=== PATIENT | female | born 1965 | race Caucasian/White ===

== ENCOUNTER 2021-05-15 09:10 | Outpatient (CLI) | payer OTHER, SELFPAY ==
--- NOTE | ~2021-05-15 | MM_ITS ---
EXAMINATION: MM screening antonio BI w [facility] HISTORY: Screening TECHNIQUE: Craniocaudal and mediolateral oblique 3-D tomosynthesis images were obtained and synthetic 2-D images were generated. CAD analysis was submitted and interpreted. COMPARISON: No prior mammogram is available for comparison at this institution. BREAST PARENCHYMAL COMPOSITION: There are scattered areas of fibroglandular density. FINDINGS: There is no evidence of suspicious mass, calcification, or architectural distortion to sugg est malignancy in either breast. There has been no suspicious interval change. IMPRESSION: 1. No mammographic evidence of malignancy. 2. Recommend routine screening mammography in one year. BI-RADS Category 1: Negative Reviewed, dictated and finalized at location A. FUNCTIONAL ANALYST
== END 2021-05-15 09:11 | disposition home or self-care (01) ==
LOC: ANHIMG 09:12
PROVIDERS: PCP Family Medicine; Visit Provider Nurse Practitioner
DX: Z12.31 Encounter for screening mammogram for malignant neoplasm of breast (principal)
CPT/HCPCS: 77063; 77067

== ENCOUNTER 2022-01-19 11:49 | Outpatient (CLI) | payer OTHER, SELFPAY | END 2022-01-19 11:50 | disposition home or self-care (01) | LOC: ANHGOSHLAB 11:52 | PROVIDERS: PCP Family Medicine; Visit Provider Nurse Practitioner | DX: E78.5 Hyperlipidemia, unspecified (principal) | CPT/HCPCS: 99199; 36415 ==

== ENCOUNTER → 2022-07-30 11:54 | Outpatient (CLI) | payer OTHER, SELFPAY ==
--- NOTE | ~2022-07-30 | US_ITS ---
Thyroid ultrasound. Clinical History: Goiter Findings: Real-time sonography of the thyroid gland was performed. The right lobe measures 4.4 x 1.4 x 1.5 cm. The left lobe measures 3.7 x 1.2 x 1.3 cm. The isthmus is 5 mm in AP diameter. There is a 1.0 cm heterogeneous mixed hypoechoic and hyperechoic ovoid nodule at the right mid to upp er pole. There is an additional 0.3 cm hypoechoic nodule at the right midpole. There is a 0.9 cm hypoechoic solid nodule at the left midpole. There is a 0.8 cm hypoechoic solid nodule at the isthmus. Impression: Small thyroid nodules, as above. No further follow-up required. Reviewed, dictated and finalized at location . Impression: Small thyroid nodules, as above. No further follow-up required.
== END ==
PROVIDERS: PCP Nurse Practitioner; Visit Provider Nurse Practitioner
DX: R13.10 Dysphagia, unspecified (principal); E04.2 Nontoxic multinodular goiter
CPT/HCPCS: 76536

== ENCOUNTER 2023-04-01 09:54 | Outpatient (CLI) | payer OTHER, SELFPAY ==
--- NOTE | ~2023-04-01 | MM_ITS ---
EXAMINATION: MM screening antonio BI w [facility]ba HISTORY: Screening mammogram TECHNIQUE: Craniocaudal and mediolateral oblique 3-D tomosynthesis images were obtained and synthetic 2-D images were generated. CAD analysis was submitted and interpreted. COMPARISON: 05/15/2021 bilateral screening mammogram BREAST PARENCHYMAL COMPOSITION: There are scattered areas of fibroglandular density. FINDINGS: There is no evidence of suspicious mass, calcification, or architectural distortion to sugg est malignancy in either breast. There has been no suspicious interval change. IMPRESSION: 1. No mammographic evidence of malignancy. 2. Recommend routine screening mammography in one year. BI-RADS Category 1: Negative Reviewed, dictated and finalized at location A. OTELEPHONE OPERATOR
== END 2023-04-01 09:55 | disposition home or self-care (01) ==
PROVIDERS: PCP Family Medicine; Visit Provider Nurse Practitioner
DX: Z12.31 Encounter for screening mammogram for malignant neoplasm of breast (principal)
CPT/HCPCS: 77063; 77067

== ENCOUNTER 2024-01-17 16:09 | Outpatient (NON) | payer OTHER, SELFPAY | END 2024-01-17 16:10 | disposition home or self-care (01) | LOC: ANHGOSHLAB 16:11 | PROVIDERS: PCP Family Medicine; Visit Provider Family Medicine | DX: R31.9 Hematuria, unspecified (principal); R10.2 Pelvic and perineal pain | CPT/HCPCS: 87086; 87088 ==

== ENCOUNTER 2024-04-05 09:44 | Outpatient (CLI) | payer OTHER, SELFPAY ==
[2024-04-05 13:08] LABS: Alanine Aminotransferase 25 U/L (6-35); Albumin Level 4.4 g/dL (3.5-5.1); Alkaline Phosphatase 106 U/L (38-126); Anion Gap 6 mmol/L (4-12); Aspartate Amino Transferase 39 U/L (14-36); Bilirubin,Total 0.7 mg/dL (0.2-1.3); Blood Urea Nitrogen 15 mg/dL (7-17); Calcium 9.9 mg/dL (8.4-10.2); Carbon Dioxide 27 mmol/L (22-30); Chloride 107 mmol/L (98-107); Estimated Glomerular Filt Rate > 60; Glucose 92 mg/dL (65-110); Potassium 4.3 mmol/L (3.4-5.0); Sodium 140 mmol/L (137-145)
== END 2024-04-05 09:45 | disposition home or self-care (01) ==
PROVIDERS: PCP Family Medicine; Visit Provider Family Medicine
DX: E78.5 Hyperlipidemia, unspecified (principal); R74.01 Elevation of levels of liver transaminase levels
CPT/HCPCS: 36415; 80053

== ENCOUNTER 2024-11-05 10:40 | Outpatient (RCR) | payer OTHER, SELFPAY ==
--- NOTE | 2024-11-05 11:53 | PTOPEVAL1 ---
Assessment and note entered by Abhay Mccartney Evaluation Information Assessment Status Evaluation ICD-10 Condition Codes (PT) Pain in right shoulder M25.511 Onset 06/30/24 Subjective Information Pt. reports that she developed shoulder pain back in June. She reports pain developed while she was sleeping. She describes pain below the shoulder at the medial portion of the right biceps . She reports that she has had episodes of pain since, but has also been pain free. She states that she is utilizing Aleve in the morning and night. She reports she has been using that regimen for 1 1/2 weeks. She reports pain is worsened with washing her back and fixing her hair . She describes most pain with activities where she reaches away from her body. She reports that she currently has no trouble with sleep. She states that her goal is to decrease her right shoulder pain. She is right hand dominant. Reported Pain Level Pain Score 2: Self Report Assessment PT Clinical Summary Pt. is a 58 year old female who enters the clinic due to developed right shoulder pain. She presents with consistencies with right shoulder impingement syndrome affecting the biceps. She currently presents with pain with shoulder flexion , difficulty with overhead tasks and lifting objects away from her body, and pain during sleep on occasion. Continued skilled PT is indicated in order to improve these areas to allow for improved comfort with all IADL's. Plan of Care Interventions Electrical Stimulation,Hot Pack/Cold Pack,Manual Therapy,Neuro Re-education,Patient/Caregiver Education,Therapeutic Activities,Therapeutic Exercise PT Services Indicated Yes Treatment Frequency and 2x/week x 8 visits Duration These treatments will address the objective and functional deficits as defined above. The patient will be advanced safely and appropriately in order for the patient to progress towards his/her prior level of function. Additional exercises will be introduced and as well as a comprehensive home exercise program upon discharge, if needed, ?to ensure carryover of functional gains achieved in the clinic. This treatment plan has been reviewed and agreement upon by the patient.
--- NOTE | 2024-11-27 15:47 | PTOPEVAL1 ---
Assessment and note entered by Li Latham DPT Evaluation Information Assessment Status Discharge ICD-10 Condition Codes (PT) Pain in right shoulder M25.511 Onset 06/30/24 Subjective Information Patient reports she has not had any shoulder apin. She reports she has been able to return to all ADLs at [facility]. She reports she is compliant with HEP. Reported Pain Level Pain Score 0: Self Report Assessment PT Clinical Summary Mrs. Medeiros attended 5 visits of skilled PT with great progress towards goals. She has been able to return to all ADLs without increase in apin as well as lift 5# overhead without difficulty. She is compilant with HEP and is appropriate for DC at this time. Plan of Care Interventions Electrical Stimulation,Hot Pack/Cold Pack,Manual Therapy,Neuro Re-education,Patient/Caregiver Education,Therapeutic Activities,Therapeutic Exercise PT Services Indicated No Treatment Frequency and DC to independent HEP Duration These treatments will address the objective and functional deficits as defined above. The patient will be advanced safely and appropriately in order for the patient to progress towards his/her prior level of function. Additional exercises will be introduced and as well as a comprehensive home exercise program upon discharge, if needed, ?to ensure carryover of functional gains achieved in the clinic. This treatment plan has been reviewed and agreement upon by the patient.
== END 2024-11-27 20:00 | disposition home or self-care (01) ==
LOC: CHSPT 10:40
DX: S46.211A Strain of muscle, fascia and tendon of other parts of biceps, right arm, initial encounter (principal); M25.511 Pain in right shoulder
CPT/HCPCS: 97014; 97110; 97140; 97161; G0283

== ENCOUNTER 2025-01-29 08:41 | Outpatient (CLI) | payer OTHER, SELFPAY ==
[2025-01-29 13:06] LABS: Hematocrit 46.4 % (37.0-47.0); Hemoglobin 14.4 g/dL (12.0-15.0); Immature Granulocyte Percent A 0.2 % (0-0.5); Lymphocytes Absolute Auto 1.65 K/mm3 (0.9-3.2); Mean Corpuscular HGB Conc 31.0 g/dl (32-36); Mean Corpuscular Hemoglobin 29.4 pg (26-34); Mean Corpuscular Volume 94.9 fl (80-100); Nucleated Red Blood Cells Absolute Auto 0.000 K/mm3 (0.0-0.012); Nucleated Red Blood Cells Perc 0.0 % (0.0-0.2); Platelet Count Result 381 k/mm3 (150-375); Red Blood Count 4.89 M/mm3 (4.2-5.4); White Blood Count 4.8 K/mm3 (4.5-10.0)
[2025-01-29 13:07] LABS: Hemoglobin A1C 5.8 % (<5.7)
[2025-01-29 13:41] LABS: Thyroid Stimulating Hormone Reflex 1.450 uIU/mL (0.465-4.68)
[2025-01-29 13:55] LABS: Alanine Aminotransferase 23 U/L (6-35); Albumin Level 4.3 g/dL (3.5-5.1); Alkaline Phosphatase 98 U/L (38-126); Anion Gap 6 mmol/L (4-12); Aspartate Amino Transferase 45 U/L (14-36); Bilirubin,Total 0.4 mg/dL (0.2-1.3); Blood Urea Nitrogen 18 mg/dL (7-17); Calcium 10.0 mg/dL (8.4-10.2); Carbon Dioxide 28 mmol/L (22-30); Chloride 106 mmol/L (98-107); Cholesterol 188 mg/dL (0-200); Estimated Glomerular Filt Rate > 60; Glucose 87 mg/dL (65-110); HDL Direct 43 mg/dL; Potassium 4.2 mmol/L (3.4-5.0); Sodium 140 mmol/L (137-145); Total Protein 7.7 g/dL (6.3-8.2); Triglycerides 122 mg/dL (<150)
[2025-01-29 14:48] LABS: Vitamin B12 340.0 pg/mL (239-931)
== END 2025-01-29 08:42 | disposition home or self-care (01) ==
LOC: ANHGOSHLAB 08:42
PROVIDERS: PCP Family Medicine; Visit Provider Family Medicine
DX: Z00.00 Encounter for general adult medical examination without abnormal findings (principal); E78.5 Hyperlipidemia, unspecified; R73.03 Prediabetes; R74.01 Elevation of levels of liver transaminase levels; E53.8 Deficiency of other specified B group vitamins; E55.9 Vitamin D deficiency, unspecified
CPT/HCPCS: 36415; 80053; 80061; 82306; 82607; 83036; 84443; 85025